=== PATIENT | female | born 2000 | race Caucasian/White ===

== ENCOUNTER 2024-06-12 01:43 | Emergency (ER) | payer MEDICAID ==
[~2024-06-12] VITALS: Ht 157.5 cm; Wt 74.4 kg
[2024-06-12] MEDS ORDERED: TRIA5PAS4 DT (02:55)
[2024-06-12] MEDS ORDERED: GUAIFENESIN/DEXTROMETHORPHAN 5 ML UDC ONE (03:13)
[2024-06-12] MEDS ORDERED: LIDOCAINE VISCUS 2% 15 ML UDC ONE (03:13)
[2024-06-12] MEDS ORDERED: GUAIFENESIN/CODEINE 5 ML LIQUID UDC ONE (03:15)
[2024-06-12] MEDS: LIDOCAINE VISCUS 2% 15 ML UDC MM ONE (03:20)
[2024-06-12] MEDS: GUAIFENESIN/CODEINE 5 ML LIQUID UDC PO ONE (03:20)
[2024-06-12] MEDS ORDERED: DEXT15LI PO (03:38)
[2024-06-12] MEDS ORDERED: [UNRECOGNIZED DRUG - OTHER] PO (03:41)
[2024-06-12 04:01] VITALS: BP 92/27; TEMP 208.4; O2SAT 98
== END 2024-06-12 04:03 | disposition home or self-care (01) ==
LOC: ER 01:58
DX: S00.512A Abrasion of oral cavity, initial encounter (principal); R05.9 Cough, unspecified; Z20.822 Contact with and (suspected) exposure to COVID-19; W01.0XXA Fall on same level from slipping, tripping and stumbling without subsequent striking against object, initial encounter; Y93.89 Activity, other specified; Y92.89 Other specified places as the place of occurrence of the external cause; Y99.8 Other external cause status
CPT/HCPCS: 71045; 86403; 87070; A4606; A4663